=== PATIENT | female | born 1970 | race Caucasian/White ===

== ENCOUNTER 2016-12-25 16:35 | Emergency (ER) | payer BC, OTHER ==
[2016-12-25 16:43] VITALS: BP 150/74
--- NOTE | 2016-12-25 17:37 | ER Document Report ---
ED Medical Screen (RME) - General Stated Complaint: RIGHT KNEE PAIN Mode of Arrival: Wheelchair Information source: Patient Notes: Patient complains of right knee pain for several months that started after she tried to out of bed. Patient complains of continued right knee pain. Pain is worse with movement and walking hx: Diverticulosis, GERD, hiatal hernia I have greeted and performed a rapid initial assessment of this patient. A comprehensive ED assessment and evaluation of the patient, analysis of test results and completion of the medical decision making process will be conducted by additional ED providers. - Related Data Allergies/Adverse Reactions: No Known Allergies Allergy (Verified 12/25/16 17:34) Past Medical History - Past Medical History Cardiac Medical History: Denies: Hx Coronary Artery Disease, Hx Heart Attack, Hx Hypertension Pulmonary Medical History: Reports: Hx Bronchitis - annually Denies: Hx Asthma, Hx COPD, Hx Pneumonia Neurological Medical History: Denies: Hx Cerebrovascular Accident, Hx Seizures Musculoskeltal Medical History: Denies Hx Arthritis Past Surgical History: Denies: Hx Hysterectomy, Hx Pacemaker Physical Exam - Vital signs Vitals: Temp Pulse Resp BP Pulse Ox 98.0 F 83 18 150/74 H 98 12/25/16 16:42 12/25/16 16:42 12/25/16 16:42 12/25/16 16:42 12/25/16 16:42 - Extremities General lower extremity: Tender - Right knee Course - Vital Signs Vital signs: Temp Pulse Resp BP Pulse Ox 98.0 F 83 18 150/74 H 98 12/25/16 16:42 12/25/16 16:42 12/25/16 16:42 12/25/16 16:42 12/25/16 16:42
[2016-12-25] MEDS ORDERED: IBUPROFEN 800 MG TABLET PO ONE (18:56)
[2016-12-25] MEDS ORDERED: TRAMADOL HCL 50 MG TABLET PO ONE (18:56)
--- NOTE | 2016-12-25 19:01 | ER Document Report ---
HPI - HPI Patient complains to provider of: worsening right knee pain Onset: Other - 3 months Quality of pain: Achy Pain Level: 4 Context: 46 yo female with right knee pain for 3 months when she twisted it. Hurts persistantly and worse. Very short legs, knee immobilizer will not fit .Has not seen anyone for this. Associated Symptoms: None Exacerbated by: Walking Relieved by: Denies Similar symptoms previously: Yes Recently seen / treated by doctor: No - ROS ROS below otherwise negative: Yes Systems Reviewed and Negative: Yes All other systems reviewed and negative - DERM Skin Color: Normal Past Medical History - General Information source: Patient - Social History Smoking Status: Never Smoker Chew tobacco use (# tins/day): No Frequency of alcohol use: None Drug Abuse: None Lives with: Spouse/Significant other Family History: Reviewed & Not Pertinent Patient has suicidal ideation: No Patient has homicidal ideation: No Pulmonary Medical History: Reports: Hx Bronchitis - annually Renal/ Medical History: Denies: Hx Peritoneal Dialysis Musculoskeltal Medical History: Denies Hx Arthritis Surgical Hx: Negative Past Surgical History: Denies: Hx Hysterectomy, Hx Pacemaker Vertical Provider Document - CONSTITUTIONAL Agree With Documented VS: Yes Exam Limitations: No Limitations General Appearance: No Apparent Distress - INFECTION CONTROL TRAVEL OUTSIDE OF THE [place] IN LAST 30 DAYS: No - HEENT HEENT: Atraumatic - NECK Neck: Supple - RESPIRATORY O2 Sat by Pulse Oximetry: 98 - BACK Back: Normal Inspection - MUSCULOSKELETAL/EXTREMETIES Musculoskeletal/Extremeties: MAEW, FROM, Tender - mild lateral and medial knee, no swelling, No Edema - NEURO Level of Consciousness: Awake, Alert Motor/Sensory: No Motor Deficit, No Sensory Deficit - DERM Integumentary: Warm, Dry Course - Vital Signs Vital signs: Temp Pulse Resp BP Pulse Ox 98.0 F 83 18 150/74 H 98 12/25/16 16:42 12/25/16 16:42 12/25/16 16:42 12/25/16 16:42 12/25/16 16:42 Discharge - Discharge Clinical Impression: Knee injury Qualifiers: Encounter type: initial encounter Laterality: right Qualified Code(s): S89.91XA - Unspecified injury of right lower leg, initial encounter Condition: Good Disposition: HOME, SELF-CARE Instructions: Use of Crutches ([facility]), Ice & Elevation ([facility]), Sprained Knee ([facility]) , Suspected Internal Knee Injury ([facility]) Additional Instructions: see the orthopedist doctor crutches elevate and ice this weekend Please complete the patient satisfaction survey if you get one, and return it.. If you do not receive a survey, then you can go to the [facility] website, [email or web address] and place your comments about your very good care. Thank you very much. It was a pleasure being your medical provider today. Prescriptions: Tramadol HCl [Ultram] 50 mg PO Q4HP PRN #20 tablet PRN Reason: Ibuprofen [Motrin 800 mg Tablet] 800 mg PO Q8HP PRN #30 tablet PRN Reason: Forms: Return to Work Referrals: ROXANN FERNANDES MD [ACTIVE STAFF] - Follow up tomorrow
== END 2016-12-25 19:21 | disposition home or self-care (01) ==
LOC: ER 16:35
DX: S89.91XA Unspecified injury of right lower leg, initial encounter (principal); M25.561 Pain in right knee; X50.1XXA Overexertion from prolonged static or awkward postures, initial encounter
CPT/HCPCS: 99283

== ENCOUNTER → 2017-01-15 | Outpatient (CLI) | payer BC, OTHER | LOC: RAD 07:03 | PROVIDERS: ATTEND Orthopaedic Surgery | DX: M25.561 Pain in right knee (principal); M25.461 Effusion, right knee ==

== ENCOUNTER 2018-11-19 14:09 | Emergency (ER) | payer OTHER ==
[2018-11-19 14:19] VITALS: BP 142/76
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
--- NOTE | 2018-11-19 15:32 | RADIOLOGY REPORT (SQ) ---
EXAM DESCRIPTION: CT CERVICAL SPINE WITHOUT COMPLETED DATE/TIME: 11/19/2018 3:21 pm REASON FOR STUDY: fall, tingling, hx back fx COMPARISON: None. TECHNIQUE: Axial images acquired through the cervical spine without intravenous contrast. Images re viewed with lung, soft tissue and bone windows. Reconstructed coronal and sagittal MPR images review ed. Images stored on PACS. All CT scanners at this facility use dose modulation, iterative reconstruction, and/or weight based d osing when appropriate to reduce radiation dose to as low as reasonably achievable (ALARA). [facility]: Dose Right [facility]: CareDose [facility]: Dose Right [facility]: Teradose 4D [facility]: [facility] RADIATION DOSE: CT Rad equipment meets quality standard of care and radiation dose reduction techniq ues were employed. CTDIvol: 23.9 mGy. DLP: 555 mGy-cm. mGy. LIMITATIONS: None. FINDINGS: ALIGNMENT: Straightening of the normal cervical lordosis, likely positional. MINERALIZATION: Normal. VERTEBRAL BODIES: No fractures or dislocation. Degenerative endplate change greatest at C7-T1. DISCS: There is disc height loss and endplate change most significant at C7-T1 with posterior disc os teophyte complex causing mild canal stenosis. FACETS, LATERAL MASSES, POSTERIOR ELEMENTS: No fractures. No dislocation. No acute findings. HARDWARE: None in the spine. VISUALIZED RIBS: No fractures. LUNG APICES AND SOFT TISSUES: No significant or acute findings. OTHER: No other significant finding. IMPRESSION: No acute bony abnormality. Degenerative disc height loss and endplate change at C7-T1 with posterior disc osteophyte complex cau sing mild osseous canal stenosis. TECHNICAL DOCUMENTATION: JOB ID: [id number] Quality ID # [id number]: Final reports with documentation of one or more dose reduction techniques (e.g., Au tomated exposure control, adjustment of the mA and/or kV according to patient size, use of iterative reconstruction technique) 2010 [employer]- All Rights Reserved Reading location - IP/workstation name: [email or web address]
== END 2018-11-19 16:06 | disposition home or self-care (01) ==
LOC: ER 14:09
DX: M25.561 Pain in right knee (principal); M25.562 Pain in left knee; W03.XXXA Other fall on same level due to collision with another person, initial encounter; Y92.219 Unspecified school as the place of occurrence of the external cause; Y99.0 Civilian activity done for income or pay; M25.78 Osteophyte, vertebrae; M48.03 Spinal stenosis, cervicothoracic region; R20.2 Paresthesia of skin; Z87.81 Personal history of (healed) traumatic fracture
CPT/HCPCS: 99283; 72125; L0120